=== PATIENT | male | born 1990 | race African-American/Black ===

== ENCOUNTER 2021-02-10 17:31 | Emergency (ER) | payer SELFPAY ==
[~2021-02-10] VITALS: Ht 177.8 cm; Wt 80.0 kg
[2021-02-10] MEDS ORDERED: IBUPROFEN 600MG TABLET PO ONE (18:15)
[2021-02-10] MEDS ORDERED: HYDROCODONE/ACETAMINOPHEN 5/325MG TABLET PO ONE (18:15)
[2021-02-10] MEDS ORDERED: IBUP-2028 MT (20:38)
[2021-02-10 22:24] VITALS: BP 114/67
== END 2021-02-10 22:41 | disposition home or self-care (01) ==
LOC: ER 17:31
DX: M54.2 Cervicalgia (principal); R07.81 Pleurodynia; M79.662 Pain in left lower leg; M25.552 Pain in left hip; V43.62XA Car passenger injured in collision with other type car in traffic accident, initial encounter; Y93.89 Activity, other specified; Y92.488 Other paved roadways as the place of occurrence of the external cause; M54.5 Low back pain
CPT/HCPCS: 71101; 72070; 72100; 73560; 73590; 73610; 99285